=== PATIENT | female | born 1985 | race Caucasian/White ===

== ENCOUNTER → 2018-06-20 | Outpatient (CLI) | payer OTHER ==
[~2018-06-20] MED LIST: DIAZ5TAB PO; DICL50TA4 PO; METH4TAB2 PO
--- NOTE | 2018-06-20 13:16 | RAD ---
Examination: MRI of the right wrist without contrast HISTORY: History of right posterior medial wrist pain for one year COMPARISON: None available Technique: Multiplanar, multisequence MR imaging of the right wrist were performed without contrast. Limited examination as a good fat sat images could not be obtained and images were substituted by [facility]. FINDINGS: The alignment of the carpal bones grossly appears unremarkable. The visualized triangular fibrocartilage complex, scapholunate ligament, lunotriquetral ligament grossly appears intact. There is a 8 mm cystic structure identified in the dorsal and deep to the flexor tendons just volar to the trapezoid likely a small ganglion cyst. The alignment of the carpometacarpal joints grossly appears unremarkable. There is no acute fracture or dislocation identified. The visualized flexor tendons, extensor tendons grossly appears unremarkable. There is minimal dorsal medial subluxed appearance of the extensor carpi ulnaris in part due to positioning. The median nerve in the carpal tunnel, ulnar nerve within the Guyon's canal grossly appears unremarkable. IMPRESSION: There is minimal dorsal medial subluxed appearance of the extensor carpi ulnaris in part due to positioning. 2. 8 mm cystic structure identified dorsal and deep to the flexor tendons just volar to the trapezoid likely a small ganglion cyst. Electronically signed by: Sukumar Griffith MD (06/20/2018 1:13 PM) [id number]
== END | disposition home or self-care (01) ==
LOC: MRI 08:37
PROVIDERS: ATTEND Orthopaedic Surgery Sports Medicine
DX: M71.331 Other bursal cyst, right wrist (principal)
CPT/HCPCS: 73221

== ENCOUNTER → 2018-06-23 | Outpatient (CLI) | payer OTHER ==
--- NOTE | 2018-06-23 11:59 | KCIC ---
Bilateral digital screening mammograms: Reason for examination: Routine baseline screening. Interpretation is made with the benefit of CAD. The skin and nipples show no abnormalities. No abnormal lymph nodes are seen. The breast parenchyma is predominantly fatty. (Breast density: Category A.) There are no dominant masses, suspicious calcifications or architectural distortions. Impression: No evidence of malignancy. Recommend routine screening. BI-RADS Category 1: Negative. "Our facility is accredited by the [employer] Mammography Program." This patient's information has been entered into a reminder system for the patient to be notified with the results of her examination and a target date for the next mammogram. Electronically signed by: Elizabeth Stevens MD (06/23/2018 11:56 AM) [id number]
== END | disposition home or self-care (01) ==
LOC: KCIC MAMMO 09:00
PROVIDERS: ATTEND Obstetrics & Gynecology
DX: Z12.31 Encounter for screening mammogram for malignant neoplasm of breast (principal)
CPT/HCPCS: 77067

== ENCOUNTER 2018-07-20 08:27 | Emergency (ER) | payer OTHER ==
[~2018-07-20] VITALS: Ht 177.8 cm; Wt 143.8 kg
[2018-07-20 08:37] VITALS: BP 164/92
[2018-07-20] MEDS ORDERED: CETIRIZINE HCL 10 MG TABLET. PO STA (09:05)
--- NOTE | 2018-07-20 09:12 | PHYS DOC ---
Past Medical History Past Medical History: Asthma, Hypothyroid Past Surgical History: Appendectomy, Cholecystectomy, , Other Additional Past Surgical Histo: THYROID, L. ELBOW Alcohol Use: Rarely Drug Use: None Adult General Chief Complaint Chief Complaint: BACK PAIN OR INJURY HPI HPI Patient is a 33 year old female with history of asthma, hypothyroidism, who presents to the ED today complaining of 10 out of 10 left lateral mid and low back pain that began on Tuesday after playing with her . Patient states during their play the rolled her from the side to the back she states she did not have pain right away but later developed left mid and left low back pain. Patient states the pain has been intermittent since then and worse on certain movements. Patient denies any loss of bowel bladder function. Denies any numbness or tenderness to bilateral lower extremities. Patient states nothing specifically is relieving the pain. She states she has 3 children and would like to be able to take care of them without the pain. She states she had an IUD placed yesterday. Review of Systems Review of Systems Constitutional: Denies fever or chills [] Eyes: Denies change in visual acuity, redness, or eye pain [] HENT: Denies nasal congestion or sore throat [] Respiratory: Denies cough or shortness of breath [] Cardiovascular: No additional information not addressed in HPI [] GI: Denies abdominal pain, nausea, vomiting, bloody stools or diarrhea [] : Denies dysuria or hematuria [] Musculoskeletal: Reports left mid and low back pain Integument: Denies rash or skin lesions [] Neurologic: Denies headache, focal weakness or sensory changes [] All other systems were reviewed and found to be within normal limits, except as documented in this note. Current Medications Current Medications Current Medications Medications (Trade) Dose Ordered Sig/Melanie Start Time Stop Time Status Last Admin Dose Admin Acetaminophen/ Hydrocodone Bitart (Lortab 5/325) 2 tab 1X ONCE 07/20/18 09:15 07/20/18 09:16 DC 07/20/18 09:44 2 TAB Cetirizine HCl (ZyrTEC) 10 mg 1X STAT 07/20/18 09:05 07/20/18 09:15 DC 07/20/18 09:56 10 MG Cyclobenzaprine HCl (Flexeril) 10 mg 1X ONCE 07/20/18 09:15 07/20/18 09:16 DC 07/20/18 09:44 10 MG Prednisone (Prednisone) 60 mg 1X ONCE 07/20/18 09:15 07/20/18 09:16 DC 07/20/18 09:45 60 MG Allergies Allergies Allergies Coded Allergies Type Severity Reaction Last Updated Verified diphenhydramine Allergy Intermediate 07/20/18 Yes phenazopyridine Allergy Intermediate 07/20/18 Yes Physical Exam Physical Exam Constitutional: Well developed, well nourished, no acute distress, non-toxic appearance. [] HENT: Normocephalic, atraumatic, bilateral external ears normal, oropharynx moist, no oral exudates, nose normal. [] Eyes: PERRLA, EOMI, conjunctiva normal, no discharge. [] Neck: Normal range of motion, no tenderness, supple, no stridor. [] Cardiovascular:Heart rate regular rhythm, no murmur [] Lungs & Thorax: Bilateral breath sounds clear to auscultation [] Abdomen: Bowel sounds normal, soft, no tenderness, no masses, no pulsatile masses. [] Skin: Warm, dry, no erythema, no rash. [] Back: Diffuse paraspinal muscle tenderness to the left thoracic and lumbar spine , no midline thoracic and tenderness, no CVA tenderness. [] Extremities: No tenderness, no cyanosis, no clubbing, ROM intact, no edema. [] Neurologic: Alert and oriented X 3, normal motor function, normal sensory function, no focal deficits noted. [] Psychologic: Affect normal, judgement normal, mood normal. [] Current Patient Data Vital Signs Vital Signs Date Time Temp Pulse Resp B/P (MAP) Pulse Ox O2 Delivery O2 Flow Rate FiO2 07/20/18 09:44 12 96 Room Air 07/20/18 08:37 97.8 84 164/92 (116) 97.8 EKG EKG [] Radiology/Procedures Radiology/Procedures [] Course & Med Decision Making Course & Med Decision Making Pertinent Labs and Imaging studies reviewed. (See chart for details) This is a 33-year-old female patient presenting to the ED today with left mid and low back pain that began Tuesday after playing with her , no cauda equina syndrome symptoms. Thoracic, and lumbar spine x-rays interpreted by radiologist are negative for any acute findings. Patient's pain appears musculoskeletal mostly on the left side. Recommended heat to her back. Discharged with medications to help her manage the pain at home. Provided instructions to follow-up with her PCP in the next 1-2 weeks. David Disclaimer David Disclaimer This electronic medical record was generated, in whole or in part, using a voice recognition dictation system. Departure Departure Impression: Primary Impression: Acute thoracic myofascial strain Additional Impression: Low back pain Disposition: HOME, SELF-CARE Condition: STABLE Referrals: BUD GILLIS MD (PCP) Follow-up in 1-2 weeks Patient Instructions: Back Pain, Adult, Musculoskeletal Pain Additional Instructions: You were evaluated in the emergency room for muscle strain. Your x-rays of the thoracic and lumbar spine were negative. Apply heat to the affected areas. Take the prescribed medications as ordered. Follow-up with your doctor in 1-2 weeks. Scripts Diclofenac Sodium (DICLOFENAC SODIUM) 50 Mg Tablet.dr 1 TAB PO BID, #30 TAB 0 Refills Prov: AGATHA BARRERA APRN 07/20/18 Diazepam (VALIUM) 5 Mg Tablet 5 MG PO TID, #15 TAB Prov: AGATHA BARRERA APRN 07/20/18 Methylprednisolone (MEDROL) 4 Mg Tab.ds.pk 1 PKG PO UD, #1 PKG Prov: AGATHA BARRERA APRN 07/20/18 Problem Qualifiers Primary Impression: Acute thoracic myofascial strain Encounter type: initial encounter Qualified Codes: S29.019A - Strain of muscle and tendon of unspecified wall of thorax, initial encounter Additional Impression: Low back pain Chronicity: acute Back pain laterality: left Sciatica presence: without sciatica Qualified Codes: M54.5 - Low back pain AGATHA BARRERA APRN Jul 20, 2018 09:12
[2018-07-20] MEDS ORDERED: CYCLOBENZAPRINE 10 MG TABLET. PO ONE (09:15)
[2018-07-20] MEDS ORDERED: predniSONE 20 MG TABLET PO ONE (09:15)
[2018-07-20] MEDS ORDERED: HYDROcodone/APAP 5/325MG 1 TAB TABLET PO ONE (09:15)
--- NOTE | 2018-07-20 10:01 | RAD ---
THORACIC SPINE 3V, LUMBAR SPINE 2-3V Clinical Indication: UPPER BACK PAIN SINCE WRESTLING WITH HER ON TUESDAY. Comparison: None. Findings: Calcified granuloma left midlung. Cardiac size normal. Visualized lungs clear. The paravertebral stripes are smooth. Upper thoracic spine is obscured on the swimmer's view. The visualized thoracic spine vertebral body height and alignment are maintained. There is minimal right convexity lumbar rotoscoliosis. Cholecystectomy clips. The vertebral body height and alignment are maintained in the lumbar spine. Mild disc space narrowing of L5/S1. IMPRESSION: No loss of vertebral body height or malalignment is seen in the thoracic or lumbar spine. Electronically signed by: Keyon Verdugo MD (07/20/2018 9:58 AM) [id number]
[2018-07-20] MEDS ORDERED: DIAZ5TAB PO (10:19)
[2018-07-20] MEDS ORDERED: DICL50TA4 PO (10:19)
[2018-07-20] MEDS ORDERED: METH4TAB2 PO (10:19)
== END 2018-07-20 10:29 | disposition home or self-care (01) ==
LOC: ER 08:27
DX: S29.019A Strain of muscle and tendon of unspecified wall of thorax, initial encounter (principal); M54.5 Low back pain; J45.909 Unspecified asthma, uncomplicated; E03.9 Hypothyroidism, unspecified; Z90.89 Acquired absence of other organs; Z90.49 Acquired absence of other specified parts of digestive tract; Z88.5 Allergy status to narcotic agent; Z88.8 Allergy status to other drugs, medicaments and biological substances; X50.9XXA Other and unspecified overexertion or strenuous movements or postures, initial encounter; Y93.89 Activity, other specified; Y92.89 Other specified places as the place of occurrence of the external cause; Y99.8 Other external cause status
CPT/HCPCS: 72072; 72100; 99284; J7512

== ENCOUNTER → 2019-11-27 | Outpatient (CLI) | payer OTHER ==
--- NOTE | 2019-11-27 19:58 | KCIC ---
First trimester OB ultrasound dated 11/27/2019. No comparison available. CLINICAL INDICATION: Size and dates. FINDINGS: Gestational sac and pole within the endometrial canal. The crown-rump length measures 4.14 cm correlating with an 11 week 0 day gestation and estimated sonographic date of delivery of 06/17/2020. No subchorionic collection. Yolk sac is seen. Positive cardiac activity 165 bpm. Amniotic fluid volume appears appropriate. Placenta not well evaluated but appears to be posterior in location.. Ovaries are not clearly identified. No adnexal mass or free fluid. IMPRESSION: 1. Single viable intrauterine gestation with estimated sonographic gestational age of 11 weeks 0 days. No acute findings. Electronically signed by: Rajendra Patino MD (11/27/2019 7:55 PM) MICHAEL
== END ==
LOC: KCIC US 14:39
PROVIDERS: ATTEND Obstetrics & Gynecology
DX: Z34.91 Encounter for supervision of normal pregnancy, unspecified, first trimester (principal); Z3A.11 11 weeks gestation of pregnancy
CPT/HCPCS: 76801

== ENCOUNTER 2020-01-08 13:00 | Emergency (ER) | payer OTHER ==
[~2020-01-08] VITALS: Ht 177.8 cm; Wt 155.0 kg
[2020-01-08 13:08] VITALS: BP 166/83
[2020-01-08] MEDS ORDERED: ONDANSETRON PF 4 MG/2 ML VIAL. IVP ONE (13:15)
[2020-01-08] MEDS ORDERED: MORPHINE SULFATE 2 MG/ML VIAL. IV ONE (13:15)
--- NOTE | 2020-01-08 13:19 | PHYS DOC ---
Past Medical History Past Medical History: Asthma, Hypothyroid Past Surgical History: Appendectomy, Cholecystectomy, , Other Additional Past Surgical Histo: THYROID, L. ELBOW Smoking Status: Never Smoker Alcohol Use: Rarely Drug Use: None General Adult EDM: Chief Complaint: BACK PAIN OR INJURY HPI: HPI: Patient is a 34 year old female who presents with nonradiating stabbing left flank pain that began within the last 24 hours. Patient denies any history of trauma. Patient denies any vaginal bleeding or discharge. Patient denies any dysuria or hematuria. Patient states the pain is somewhat worse with movement. Patient denies any fevers chills cough or shortness of breath. Pain is relatively constant and severe in intensity. Review of Systems: Review of Systems: Constitutional: Denies fever or chills. [] Eyes: Denies change in visual acuity. [] HENT: Denies nasal congestion or sore throat. [] Respiratory: Denies cough or shortness of breath. [] Cardiovascular: Denies chest pain or edema. [] GI: Denies abdominal pain, nausea, vomiting, bloody stools or diarrhea. [] : Denies dysuria. [] Denies vaginal bleeding Musculoskeletal: Complains of left flank pain Integument: Denies rash. [] Neurologic: Denies headache, focal weakness or sensory changes. [] Endocrine: Denies polyuria or polydipsia. [] Lymphatic: Denies swollen glands. [] Psychiatric: Denies depression or anxiety. [] Heart Score: Risk Factors: Risk Factors: DM, Current or recent (<one month) smoker, HTN, HLP, family history of CAD, obesity. Risk Scores: Score 0 - 3: 2.5% MACE over next 6 weeks - Discharge Home Score 4 - 6: 20.3% MACE over next 6 weeks - Admit for Clinical Observation Score 7 - 10: 72.7% MACE over next 6 weeks - Early Invasive Strategies Allergies: Allergies: Allergies Coded Allergies Type Severity Reaction Last Updated Verified diphenhydramine Allergy Intermediate 07/20/18 Yes phenazopyridine Allergy Intermediate 07/20/18 Yes Physical Exam: PE: Constitutional: Well developed, well nourished, no acute distress, non-toxic appearance. [] HENT: Normocephalic, atraumatic, bilateral external ears normal, no trismus nose normal. [] Eyes: PERRLA, EOMI, conjunctiva normal, no discharge. [] Neck: Normal range of motion, no tenderness, supple, no stridor. [] Cardiovascular:Heart rate regular rhythm, peripheral pulses intact, cap refill brisk Lungs & Thorax: Bilateral breath sounds clear, no respiratory distress Abdomen: Bowel sounds normal, soft, no tenderness, no masses, no pulsatile masses. [] Skin: Warm, dry, no erythema, no rash. [] Back: No tenderness, mild left CVA tenderness Extremities: No tenderness, no cyanosis, no clubbing, ROM intact, no edema. [] Neurologic: Alert and oriented X 3, normal motor function, normal sensory func tion, no focal deficits noted. [] Psychologic: Affect normal, judgement normal, mood normal. [] Current Patient Data: Labs: Laboratory Tests Test 01/08/20 13:20 01/08/20 13:29 01/08/20 14:00 Urine Collection Type Void Urine Color Yellow Urine Clarity Clear Urine pH 7.5 Urine Specific [place] 1.015 Urine Protein Negative mg/dL Urine Glucose (UA) Negative mg/dL Urine Ketones (Stick) Negative mg/dL Urine Blood Negative Urine Nitrite Negative Urine Bilirubin Negative Urine Urobilinogen Dipstick 0.2 mg/dL Urine Leukocyte Esterase Negative Urine RBC 1-2 /HPF Urine WBC 0 /HPF Urine Squamous Epithelial Cells Few /LPF Urine Bacteria Few /HPF Urine Mucus Slight /LPF Bedside Urine HCG, Qualitative Hcg positive White Blood Count 6.9 x10^3/uL Red Blood Count 4.03 x10^6/uL Hemoglobin 12.1 g/dL Hematocrit 35.0 % Mean Corpuscular Volume 87 fL Mean Corpuscular Hemoglobin 30 pg Mean Corpuscular Hemoglobin Concent 35 g/dL Red Cell Distribution Width 15.2 % Platelet Count 162 x10^3/uL Neutrophils (%) (Auto) 79 % Lymphocytes (%) (Auto) 15 % Monocytes (%) (Auto) 5 % Eosinophils (%) (Auto) 1 % Basophils (%) (Auto) 0 % Neutrophils # (Auto) 5.5 x10^3/uL Lymphocytes # (Auto) 1.0 x10^3/uL Monocytes # (Auto) 0.3 x10^3/uL Eosinophils # (Auto) 0.0 x10^3/uL Basophils # (Auto) 0.0 x10^3/uL Sodium Level 137 mmol/L Potassium Level 3.9 mmol/L Chloride Level 103 mmol/L Carbon Dioxide Level 23 mmol/L Anion Gap 11 Blood Urea Nitrogen 8 mg/dL Creatinine 0.6 mg/dL Estimated GFR (Cockcroft-Gault) 113.8 BUN/Creatinine Ratio 13 Glucose Level 104 mg/dL Calcium Level 9.1 mg/dL Total Bilirubin 0.3 mg/dL Aspartate Amino Transf (AST/SGOT) 10 U/L Alanine Aminotransferase (ALT/SGPT) 26 U/L Alkaline Phosphatase 43 U/L Total Protein 6.6 g/dL Albumin 3.2 g/dL Albumin/Globulin Ratio 0.9 Lipase 73 U/L Current Medications Medications (Trade) Dose Ordered Sig/Melanie Route PRN Reason Start Time Stop Time Status Last Admin Dose Admin Morphine Sulfate (Morphine Sulfate) 2 mg 1X ONCE IV 01/08/20 13:15 01/08/20 13:20 DC 01/08/20 15:00 Ondansetron HCl (Zofran) 4 mg 1X ONCE IVP 01/08/20 13:15 01/08/20 13:20 DC 01/08/20 14:58 Vital Signs: Vital Signs Date Time Temp Pulse Resp B/P (MAP) Pulse Ox O2 Delivery O2 Flow Rate FiO2 01/08/20 13:08 98.1 102 16 166/83 (110) 98 Room Air 98.1 EKG: EKG: [] Radiology/Procedures: Radiology/Procedures: [][facility] [address] [place], [place] [id number] IMAGING REPORT Signed PATIENT: MICHELET HERRING ACCOUNT: [id number] : 1985 LOCATION: ER AGE: 34 SEX: F EXAM STATUS: REG ER ORD. PHYSICIAN: MIO LEIGH MD REASON: 15 weekks preg, left flank pain PROCEDURE: RENAL COMPLETE BILATERAL EXAMINATION: 1. Renal ultrasound complete 2. Obstetrical ultrasound greater than 6 weeks INDICATION: 34-year-old woman 15 weeks with left flank pain. FINDINGS: Renal ultrasound: Right kidney measures 10.5 x 4.9 x 5.0 cm and demonstrates no hydronephrosis or shadowing stones. No perinephric fluid collection. Left kidney measures 10.5 x 4.9 x 5.0 cm and also demonstrates no hydronephrosis or shadowing stones. No perinephric fluid. Limited OB ultrasound: No hydronephrosis or mass identified on transabdominal ultrasound. Normal cortical echogenicity to both kidneys. The urinary bladder is empty. IMPRESSION: 1. No hydronephrosis in either kidney. 2. No evidence of bowel obstruction or perforation. Electronically signed by: Rhonda Nelson MD (01/08/2020 2:24 PM) [id number] DICTATED and SIGNED BY: RHONDA NELSON MD DATE: 01/08/20 1424 [facility] [address] [place], [place] [id number] IMAGING REPORT Signed PATIENT: MICHELET HERRING ACCOUNT: [id number] : 1985 LOCATION: ER AGE: 34 SEX: F EXAM STATUS: REG ER ORD. PHYSICIAN: MIO LEIGH MD REASON: 15 weekks preg, left flank pain PROCEDURE: OB LIMITED ADDENDUM ADDENDUM #1 Addendum: Description of OB ultrasound findings were inadvertently omitted from the original report. There are included here by addendum. EXAM: Ultrasound OB Greater than 14 weeks INDICATION: Reason: 15 weekks preg, left flank pain / Spl. Instructions: / History: TECHNIQUE: Real-time obstetrical ultrasound was performed with permanent freeze-frame documentation. COMPARISON: 11/27/2019 OB ultrasound.. FINDINGS: POSITION: Cephalic HEART RATE: 147 bpm ANNMARIE: 11.1 cm PLACENTA: Anterior CERVICAL LENGTH: 4.7 cm MATERNAL UTERUS: Unremarkable. MATERNAL ADNEXA: Unremarkable. AGE/DATES: Gestational Age by LMP: 17 weeks 4 days Gestation Age by US: 17 weeks 4 days EDC by LMP: June 13, 2020 EDC by US: June 13, 2020 WEIGHT: 200 grams +/- 30 grams PERCENTILE WEIGHT: Not estimated. BIOMETRIC PARAMETERS: BPD: 3.8 cm corresponding with 17 weeks 4 days HC: 14.5 cm corresponding with 17 weeks 5 days AC: 11.8 cm corresponding with 17 weeks 4 days FL: 2.5 cm corresponding with 17 weeks 3 days IMPRESSION: Normal OB ultrasound demonstrating a single viable fetus in cephalic position. Estimated sonographic gestational age of 17 weeks 4 days and EDC of June 13, 2020. Electronically signed by: Rhonda Nelson MD (01/08/2020 2:55 PM) DICTATED AND SIGNED BY: RHONDA NELSON MD DATE: 01/08/20 1455 CC: MIO LEIGH MD; BUD GILLIS MD ~ EXAMINATION: 1. Renal ultrasound complete 2. Obstetrical ultrasound greater than 6 weeks INDICATION: 34-year-old woman 15 weeks with left flank pain. FINDINGS: Renal ultrasound: Right kidney measures 10.5 x 4.9 x 5.0 cm and demonstrates no hydronephrosis or shadowing stones. No perinephric fluid collection. Left kidney measures 10.5 x 4.9 x 5.0 cm and also demonstrates no hydronephrosis or shadowing stones. No perinephric fluid. Limited OB ultrasound: No hydronephrosis or mass identified on transabdominal ultrasound. Normal cortical echogenicity to both kidneys. The urinary bladder is empty. IMPRESSION: 1. No hydronephrosis in either kidney. 2. No evidence of bowel obstruction or perforation. Electronically signed by: Rhonda Nelson MD (01/08/2020 2:24 PM) [id number] DICTATED and SIGNED BY: RHONDA NELSON MD DATE: 01/08/20 1424 Course & Med Decision Making: Course & Med Decision Making Pertinent Labs and Imaging studies reviewed. (See chart for details) [] 34-year-old female presents with left flank pain. Patient is in second tr imester . Ultrasound was done to rule out hydronephrosis as well as complications with fetus. Ultrasound is reassuring. I discussed with technology internship who states the aorta looks normal as well. Patient clinically improved at 15:20. Dragon Disclaimer: Dragon Disclaimer: This electronic medical record was generated, in whole or in part, using a voice recognition dictation system. Departure Departure Impression: Primary Impression: Low back pain Additional Impression: Left flank pain Disposition: 01 HOME, SELF-CARE Condition: STABLE Referrals: BUD GILLIS MD (PCP) 2-3 DAYS Patient Instructions: Back Pain in Additional Instructions: EMERGENCY DEPARTMENT GENERAL DISCHARGE INSTRUCTIONS THANK YOU for coming to [facility] Emergency Department (ED) today and trusting us with your care. We trust that you had a positive experience in our Emergency Department. If you wish to speak to the department Management you can contact the department mgr at . YOUR FOLLOW UP INSTRUCTIONS ARE FOLLOWS: Do you have a private doctor? If you do not have a private doctor, please ask for a resource list of physicians or clinics that may be able to assist you with follow up care. The Emergency Physician has interpreted your x-rays. The X-ray specialist will also review them. If there is a change in the findings you will be notified in 48 hours when at all possible. A lab test or lab culture may have been done, your results will be reviewed and you will be notified if you need a change in treatment. ADDITIONAL INSTRUCTIONS AND INFORMATION Your care today has been supervised by a physician who is specially trained in emergency care. Many problems require more than one evaluation for a complete diagnosis and treatment. We recommend that you schedule your follow up appointment as recommended to ensure complete treatment of your illness or injury. If you are unable to obtain follow up care and continue to have a problem, or if your condition worsens we recommend that you return to the ED. We are not able to safely determine your condition over the phone nor are we able to give sound medical advice over the phone. For these safety reasons, if you call for medical advice we will ask you to come to the ED for further evaluation If you have any questions regarding these discharge instructions please call the ED at . SAFETY INFORMATION In the interest of safety, wellness, and injury prevention; we encourage you to wear your seatbelt, if you smoke; quit smoking, and we encourage your family to use protective helmet for bicycling and other sporting events that present an increased risk for head injury. IF YOUR SYMPTOMS WORSEN OR NEW SYMPTOMS DEVELOP, OR YOU HAVE CONCERNS ABOUT YOUR CONDITION; OR IF YOUR CONDITION WORSENS WHILE YOU ARE WAITING FOR YOUR FOLLOW UP APPOINTMENT; EITHER CONTACT YOUR PRIMARY CARE DOCTOR, THE PHYSICIAN WHOSE NAME AND NUMBER YOU WERE GIVEN, OR RETURN TO THE ED IMMEDIATELY. Scripts Cyclobenzaprine Hcl (CYCLOBENZAPRINE HCL) 5 Mg Tablet 1 TAB PO QHS, #15 TAB Prov: MIO LEIGH MD 01/08/20 Justicifation of Admission Dx: Justifications for Admission: Justification of Admission Dx: N/A MIO LEIGH MD Jan 08, 2020 13:19
[2020-01-08 13:38] LABS: BILIRUBIN,URINE NEGATIVE (NEG); CLARITY,URINE CLEAR; COLOR,URINE YELLOW; NITRITE,URINE NEGATIVE (NEG); PH,URINE 7.5 (<5.0-8.0); PROTEIN,URINE NEGATIVE (NEG-TRACE); UROBILINOGEN,URINE 0.2 mg/dL (0.2 mg/dL)
[2020-01-08 13:54] LABS: BACTERIA,URINE FEW /HPF (0-FEW); SQUAMOUS EPITHELIAL CELL,UR FEW /LPF; WBC,URINE 0 /HPF (0-4)
[2020-01-08 14:08] LABS: BASO % 0 % (0-3); EOS % 1 % (0-3); HEMOGLOBIN 12.1 g/dL (12.0-15.5); LYMPH % 15 % (24-48); MEAN CORPUSCULAR HEMOGLOBIN 30 pg (25-35); MEAN CORPUSCULAR HGB CONC 35 g/dL (31-37); MEAN CORPUSCULAR VOLUME 87 fL (79-100); MONO # 0.3 x10^3/uL (0.0-1.1); MONO % 5 % (0-9); NEUT # 5.5 x10^3/uL (1.8-7.7); NEUT % 79 % (31-73); PLATELET COUNT 162 x10^3/uL (140-400); RED BLOOD COUNT 4.03 x10^6/uL (3.50-5.40); RED CELL DISTRIBUTION WIDTH 15.2 % (11.5-14.5); WHITE BLOOD COUNT 6.9 x10^3/uL (4.0-11.0)
[2020-01-08 14:27] LABS: CALCIUM 9.1 mg/dL (8.5-10.1); CREATININE 0.6 mg/dL (0.6-1.0); GFR 113.8; POTASSIUM 3.9 mmol/L (3.5-5.1)
--- NOTE | 2020-01-08 14:28 | RAD ---
EXAMINATION: 1. Renal ultrasound complete 2. Obstetrical ultrasound greater than 6 weeks INDICATION: 34-year-old woman 15 weeks with left flank pain. FINDINGS: Renal ultrasound: Right kidney measures 10.5 x 4.9 x 5.0 cm and demonstrates no hydronephrosis or shadowing stones. No perinephric fluid collection. Left kidney measures 10.5 x 4.9 x 5.0 cm and also demonstrates no hydronephrosis or shadowing stones. No perinephric fluid. Limited OB ultrasound: No hydronephrosis or mass identified on transabdominal ultrasound. Normal cortical echogenicity to both kidneys. The urinary bladder is empty. IMPRESSION: 1. No hydronephrosis in either kidney. 2. No evidence of bowel obstruction or perforation. Electronically signed by: Margarita Nelson MD (01/08/2020 2:24 PM) [id number]
[2020-01-08 14:33] LABS: ALBUMIN 3.2 g/dL (3.4-5.0); ALBUMIN/GLOBULIN RATIO 0.9 (1.0-1.7); TOTAL BILIRUBIN 0.3 mg/dL (0.2-1.0); TOTAL PROTEIN 6.6 g/dL (6.4-8.2)
[2020-01-08] MEDS ORDERED: CYCL5TAB PO (15:25)
== END 2020-01-08 15:42 | disposition home or self-care (01) ==
LOC: ER 13:00
DX: O26.892 Other specified pregnancy related conditions, second trimester (principal); M54.5 Low back pain; R10.9 Unspecified abdominal pain; J45.909 Unspecified asthma, uncomplicated; E03.9 Hypothyroidism, unspecified; Z90.49 Acquired absence of other specified parts of digestive tract; Z90.89 Acquired absence of other organs; Z98.890 Other specified postprocedural states; Z88.8 Allergy status to other drugs, medicaments and biological substances
CPT/HCPCS: 36415; 76770; 76815; 80053; 81001; 81025; 83690; 85025; 96374; 96375; 99285; J2270; J2405

== ENCOUNTER 2020-08-24 21:21 | Emergency (ER) | payer OTHER ==
[~2020-08-24] VITALS: Ht 180.3 cm; Wt 151.0 kg
[~2020-08-24 21:21] MED LIST changes: +CYCL5TAB PO
[2020-08-24 22:03] VITALS: BP 158/69
--- NOTE | 2020-08-24 23:02 | PHYS DOC ---
Past Medical History Past Medical History: Asthma, Hypothyroid, Migraines Past Surgical History: Appendectomy, Cholecystectomy, , Other Additional Past Surgical Histo: THYROID, L. ELBOW Smoking Status: Never Smoker Alcohol Use: Rarely Drug Use: None General Adult EDM: Chief Complaint: POST-OP PROBLEM HPI: HPI: Patient is a 35yo female presenting for post-op problem. She reports being ~4 weeks post-op her 5th . There were no problems with this surgery that was performed at [facility] and was recently seen this past week by OB and raved about how well everything had been healing. Nonetheless, patient reports today ~8 hours prior to arrival developing "a small hole" on the right side of her c- section scar that started draining clear/yellow tinted liquid, ~2oz in total. This concerning patient and prompting them to come in for evaluation. No fever reported Review of Systems: Review of Systems: Fourteen body systems of review of systems have been reviewed. See HPI for pertinent positives and negative responses, other bonner all other systems are negative, non-pertinent or non-contributory Heart Score: C/O Chest Pain: No Risk Factors: Risk Factors: DM, Current or recent (<one month) smoker, HTN, HLP, family history of CAD, obesity. Risk Scores: Score 0 - 3: 2.5% MACE over next 6 weeks - Discharge Home Score 4 - 6: 20.3% MACE over next 6 weeks - Admit for Clinical Observation Score 7 - 10: 72.7% MACE over next 6 weeks - Early Invasive Strategies Allergies: Allergies: Allergies Coded Allergies Type Severity Reaction Last Updated Verified diphenhydramine Allergy Intermediate 07/20/18 Yes phenazopyridine Allergy Intermediate 07/20/18 Yes Physical Exam: PE: Constitutional: Well developed, well nourished, no acute distress, non-toxic appearance. HENT: Normocephalic, atraumatic, bilateral external ears normal, oropharynx moist, no oral exudates, nose normal. Eyes: PERRLA, EOMI, conjunctiva normal, no discharge. Neck: Normal range of motion, no tenderness, supple, no stridor. Cardiovascular: Heart rate regular, sinus rhythm, no murmurs rubs or gallops Lungs & Thorax: Bilateral breath sounds clear to auscultation Abdomen: Bowel sounds normal, soft and protuberant, no tenderness, no masses, no pulsatile masses. Nonsurgical abdomen, no peritoneal signs Skin: Warm, dry, no erythema, no rash. Well-healing horizontal suprapubic c- section scar with small opening on right-lateral side the minimal serosanguineous drainage, no crepitus, erythema, streaking, palpable fluid collection or other obvious abnormalities Back: No tenderness, no CVA tenderness. Extremities: No tenderness, no cyanosis, no clubbing, ROM intact, no edema. Neurologic: Alert and oriented X 3, grossly normal motor & sensory function, no focal deficits noted. Psychologic: Affect normal, judgement normal, mood normal. Current Patient Data: Vital Signs: Vital Signs Date Time Temp Pulse Resp B/P (MAP) Pulse Ox O2 Delivery O2 Flow Rate FiO2 08/24/20 21:30 98.2 99 18 164/75 (104) 96 Room Air 98.2 EKG: EKG: [] Radiology/Procedures: Radiology/Procedures: [] Course & Med Decision Making: Course & Med Decision Making VSS. HPI and PE concerning for post-op drainage without emergent/surgical findings I called patient's OBGYN and discussed case. Both in agreement given physical exam findings to defer further workup and/or need for antibiotics in ER setting, close outpatient follow-up advised I discussed this phone call with patient and and both were amenable to proposed plan of care, strict return precautions discussed with good understanding, all questions and concerns addressed prior to departure This patient required critical care. Due to the fact that the patient required a significant amount of one on one physician patient contact time, ordering and review of studies, arranging urgent treatment with development of a management plan, evaluation of patients response to treatment with frequent reassessments, and discussions with other providers this patient required critical care time 35mins Critical care time was indicated due to the inherent instability and/or potential for instability in this patient. The critical care time that is allocated to this patient is above and beyond any time spent on any other billable procedures performed on this patient. Dragon Disclaimer: Dragon Disclaimer: This electronic medical record was generated, in whole or in part, using a voice recognition dictation system. Departure Departure Impression: Primary Impression: Complication of section wound Disposition: HOME / SELF CARE / HOMELESS Condition: GOOD Referrals: BUD GILLIS MD (PCP) Additional Instructions: As discussed prior to ER departure, there is no concerning signs on physical exam that indicated emergent nor surgical intervention. I discussed and disclose potential need for labs and other diagnostic work-up but a discussion was had with your SENIOR TREASURY ANALYST regarding findings and joint decision was made to defer any further work-up while in ER setting. Patient to call SENIOR TREASURY ANALYST office first thing in the morning to discuss need for close outpatient follow-up for repeat evaluation. Continued skin care hygiene advised until seen in outpatient s etting by SENIOR TREASURY ANALYST. If any concerning signs or symptoms present prior to outpatient follow-up please do not hesitate to come back for repeat evaluation. It was a pleasure to take care of you and I wish you the best going forward ALLEN HUGHES DO August 24, 2020 23:02
== END 2020-08-24 23:05 | disposition home or self-care (01) ==
LOC: ER 21:21
DX: O90.89 Other complications of the puerperium, not elsewhere classified (principal); G43.909 Migraine, unspecified, not intractable, without status migrainosus; E03.9 Hypothyroidism, unspecified; Z90.49 Acquired absence of other specified parts of digestive tract; J45.909 Unspecified asthma, uncomplicated; Z90.89 Acquired absence of other organs; Z88.5 Allergy status to narcotic agent; Z88.8 Allergy status to other drugs, medicaments and biological substances
CPT/HCPCS: 99281; 99291-25